=== PATIENT | female | born 1980 | race Hispanic/Latino ===

== ENCOUNTER 2018-10-07 20:40 | Emergency (ER) | payer BC ==
[2018-10-07] MEDS ORDERED: CYCLOBENZAPRINE HCL 10 MG TABLET ONE (21:37)
[2018-10-07] MEDS ORDERED: ACETAMINOPHEN-CODEINE 300/30MG TAB ONE (21:38)
== END 2018-10-07 22:43 | disposition home or self-care (01) ==
LOC: EDH 20:40
DX: M54.5 Low back pain (principal); M62.830 Muscle spasm of back; Z90.49 Acquired absence of other specified parts of digestive tract; Z98.51 Tubal ligation status; Z98.890 Other specified postprocedural states
CPT/HCPCS: 72100